=== PATIENT | female | born 2000 ===

== ENCOUNTER 2018-11-07 13:49 | Emergency (ER) | payer MEDICAID ==
[2018-11-07 14:01] VITALS: RESP 18
--- NOTE | 2018-11-07 14:24 | ED PDOC ---
Arrival/HPI - General Historian: Patient - History of Present Illness Narrative History of Present Illness (Text): 11/07/18 14:49 18-year-old female presents today with right upper molar dental pain. Patient states 2 days ago she had her right upper wisdom tooth removed and states that she has some pain and a little bit of redness around the gumline. Patient states she was not placed on any antibiotics and she is concerned for infection. Patient denies fevers or chills. No chest pain or shortness of breath. She denies trismus or drooling. No medications were taken for pain at home. On a side no patient adds that she has dysuria and urinary frequency for the past few days and is concerned she may have a urinary tract infection. Patient denies vaginal bleeding or vaginal discharge. Patient states she delivered a baby on October 03 and is not currently breast-feeding. <Dana Hendricks - Last Filed: 11/07/18 20:12> <Ronald Restrepo - Last Filed: 11/08/18 12:38> - General Chief Complaint: Dental Pain Time Seen by Provider: 11/07/18 13:50 Past Medical History - Provider Review Nursing Documentation Reviewed: Yes - Travel History Have you recently traveled outside [place] w/in the past 3 mons?: No - Pulmonary Hx Asthma: Yes - Psychiatric Hx Substance Use: No <Dana Hendricks - Last Filed: 11/07/18 20:12> Family/Social History - Physician Review Nursing Documentation Reviewed: Yes Family/Social History: Unknown Family HX Smoking Status: Heavy Smoker > 10 Cigarettes Daily Hx Alcohol Use: Yes Frequency of alcohol use: Socially Hx Substance Use: No <Dana Hendricks - Last Filed: 11/07/18 20:12> Allergies/Home Meds <Dana Hendricks - Last Filed: 11/07/18 20:12> <Ronald Restrepo - Last Filed: 11/08/18 12:38> Allergies/Adverse Reactions: Allergies No Known Allergies Allergy (Verified 11/07/18 14:01) Review of Systems - Review of Systems Constitutional: absent: Fatigue, Fevers ENT: Other (right upper dental pain) Respiratory: absent: SOB, Cough Cardiovascular: absent: Chest Pain, Palpitations Gastrointestinal: absent: Abdominal Pain, Constipation, Diarrhea, Nausea, Vomiting Genitourinary Female: Dysuria, Frequency. absent: Vaginal Bleeding, Vaginal Discharge Musculoskeletal: absent: Arthralgias, Back Pain, Neck Pain Skin: absent: Rash, Pruritis Neurological: absent: Headache, Dizziness Psychiatric: absent: Anxiety, Depression <Dana Hendricks - Last Filed: 11/07/18 20:12> Physical Exam Vital Signs Reviewed: Yes Vital Signs Temp Pulse Resp BP Pulse Ox 11/07/18 13:58 98.1 F 99 H 18 121/79 98 Temperature: Afebrile Blood Pressure: Normal Pulse: Regular Respiratory Rate: Normal Appearance: Positive for: Well-Appearing, Non-Toxic, Comfortable Pain Distress: None Mental Status: Positive for: Alert and Oriented X 3 - Systems Exam Head: Present: Atraumatic Pupils: Present: PERRL Extroacular Muscles: Present: EOMI Conjunctiva: Present: Normal Ears: Present: Normal, NORMAL TM Mouth: Present: Moist Mucous Membranes. No: Drooling, Trismus, Normal Teeth (+ right upper gingiva with erythema; + tenderness; no active bleeding; packing in place. ) Pharnyx: Present: Normal. No: ERYTHEMA, EXUDATE, TONSILS ENLARGED, Peritonsilar Swelling, Uvular Deviation, Strider Nose (External): Present: Atraumatic Respiratory/Chest: Present: Clear to Auscultation Cardiovascular: Present: Regular Rate and Rhythm Abdomen: No: Tenderness, Rebound, Guarding Back: Present: Normal Inspection Upper Extremity: Present: Normal ROM Lower Extremity: Present: Normal ROM Neurological: Present: GCS=15 Skin: Present: Warm, Dry, Normal Color Psychiatric: Present: Alert, Oriented x 3 <Dana Hendricks - Last Filed: 11/07/18 20:12> Vital Signs Temp Pulse Resp BP Pulse Ox 11/07/18 15:56 98.2 F 89 18 156/66 H 99 11/07/18 13:58 98.1 F 99 H 18 121/79 98 <Ronald Restrepo - Last Filed: 11/08/18 12:38> Medical Decision Making ED Course and Treatment: 11/07/18 15:05 Patient is nontoxic well-appearing in no distress with stable vital signs No trismus or drooling, moist mucous membranes Amoxicillin motrin UA: + trace leukocytes will treat with amoxicillin for dental infection and UTI. urine culture pending. I advised follow-up with the dentist within the next 2 days. I advised immediate return is symptoms worsen persist or if new concerning symptoms develop Patient verbalizes understanding of discharge instructions and need for immediate followup. Impression: Toothache, UTI Motrin every 6 hours as needed for pain Amoxicillin 1 tablet 3 times daily 10 days Follow-up with the dentist within the next 2 days Follow up with the primary care physician within the next 2 days. Return immediately if symptoms worsen persist or if new concerning symptoms develop <Dana Hendricks - Last Filed: 11/07/18 20:12> - Lab Interpretations Lab Results: Urine Color Yellow (YELLOW) 11/07/18 14:47 Urine Appearance Clear (CLEAR) 11/07/18 14:47 Urine pH 7.0 (4.7-8.0) 11/07/18 14:47 Ur Specific [place] 1.020 (1.005-1.035) 11/07/18 14:47 Urine Protein Negative mg/dL (<30 mg/dL) 11/07/18 14:47 Urine Glucose (UA) Negative mg/dL (NEGATIVE) 11/07/18 14:47 Urine Ketones Negative mg/dL (NEGATIVE) 11/07/18 14:47 Urine Blood Trace-intact (NEGATIVE) H 11/07/18 14:47 Urine Nitrate Negative (NEGATIVE) 11/07/18 14:47 Urine Bilirubin Negative (NEGATIVE) 11/07/18 14:47 Urine Urobilinogen 0.2 E.U./dL (<1 E.U./dL) 11/07/18 14:47 Ur Leukocyte Esterase Trace Marie/uL (NEGATIVE) H 11/07/18 14:47 Urine RBC 1 - 3 /hpf (0-2) H 11/07/18 14:47 Urine WBC 0 - 2 /hpf (0-6) 11/07/18 14:47 Ur Epithelial Cells 1 - 3 /hpf (0-5) 11/07/18 14:47 Urine Bacteria Few /hpf (NONE) 11/07/18 14:47 - Medication Orders Current Medication Orders: Discontinued Medications Amoxicillin (Amoxil 250 Mg/5 Ml Susp) 500 mg PO STAT STA; Protocol Stop: 11/07/18 15:36 Last Admin: 11/07/18 15:53 Dose: 500 mg <Ronald Restrepo - Last Filed: 11/08/18 12:38> - PA / EPIC ANALYST / Resident Statement MD/DO has reviewed & agrees with the documentation as recorded. <Ronald Restrepo - Last Filed: 11/08/18 12:38> Disposition/Present on Arrival - Present on Arrival Any Indicators Present on Arrival: No History of DVT/PE: No History of Uncontrolled Diabetes: No Urinary Catheter: No History of Decub. Ulcer: No History Surgical Site Infection Following: None - Disposition Have Diagnosis and Disposition been Completed?: Yes Disposition Time: 14:24 Patient Plan: Discharge <Dana Hendricks - Last Filed: 11/07/18 20:12> <Ronald Restrepo - Last Filed: 11/08/18 12:38> - Disposition Diagnosis: Pain, dental, UTI (urinary tract infection) Disposition: HOME/ ROUTINE Condition: GOOD Discharge Instructions (ExitCare): Dental Pain (DC) Additional Instructions: Motrin every 6 hours as needed for pain Amoxicillin 1 tablet 3 times daily 10 days Follow-up with the dentist within the next 2 days Follow up with the primary care physician within the next 2 days. Return immediately if symptoms worsen persist or if new concerning symptoms develop Prescriptions: RX: Amoxicillin 500 mg PO TID #30 tab Ibuprofen [Motrin] 600 mg PO Q6H PRN #20 tab PRN Reason: pain/fever reduction Referrals: Layne Thompson MD [Medical Doctor] - Follow up with primary Zoran Huerta DMD [Non-Staff] - Follow up with primary [facility] [Outside] - Follow up with primary Forms: [facility] ([place]), WORK NOTE
[2018-11-07 15:01] LABS: URINE BILIRUBIN NEGATIVE (NEGATIVE); URINE BLOOD TRACE-INTACT (NEGATIVE); URINE GLUCOSE (UA) NEGATIVE (NEGATIVE); URINE LEUKOCYTE ESTERASE TRACE Leu/uL (NEGATIVE); URINE PROTEIN NEGATIVE mg/dL (<30 mg/dL); URINE UROBILINOGEN 0.2 E.U./dL (<1 E.U./dL)
[2018-11-07 15:02] LABS: URINE APPEARANCE CLEAR (CLEAR); URINE COLOR YELLOW (YELLOW)
[2018-11-07 15:06] LABS: URINE BACTERIA FEW /hpf; URINE WBC 0 - 2 /hpf (0-6)
[2018-11-07] MEDS ORDERED: Amoxicillin 250 mg/5 ml Susp (150 ml) PO STA (15:35)
[2018-11-07 15:56] VITALS: BP 156/66; PULSE 89; TEMP 98.2; O2SAT 99
== END 2018-11-07 15:56 | disposition home or self-care (01) ==
LOC: ED 13:49
DX: K08.89 Other specified disorders of teeth and supporting structures (principal); N39.0 Urinary tract infection, site not specified; F17.210 Nicotine dependence, cigarettes, uncomplicated